=== PATIENT | male | born 1990 | race Caucasian/White ===

== ENCOUNTER 2019-03-15 13:40 | Outpatient (CLI) | payer BC ==
--- NOTE | 2019-03-15 14:31 | ULT ---
EXAM: Right lower extremity venous Doppler US HISTORY: Right lower extremity edema and pain FINDINGS: Grayscale, color-flow, Doppler evaluation, spectral analysis of the right lower extremity venous stru ctures is performed with 2-D imaging. The right common femoral, superficial femoral, popliteal, posterior tibial, proximal greater saphenous and profunda femoral veins are imaged. There is normal luminal compressibility, flow, and augmentation the visualized deep venous structures of the right lower extremity. IMPRESSION: No evidence of a deep vein thrombosis in the right lower extremity.
== END 2019-03-15 13:41 | disposition home or self-care (01) ==
LOC: ULT 13:40
PROVIDERS: ATTEND Family Medicine
DX: S76.301D Unspecified injury of muscle, fascia and tendon of the posterior muscle group at thigh level, right thigh, subsequent encounter (principal)

== ENCOUNTER 2019-05-20 12:50 | Outpatient (CLI) | payer BC ==
--- NOTE | 2019-05-20 13:24 | ULT ---
US Testicular W Doppler HISTORY: Testicular pain x3 days. COMPARISON: None. FINDINGS: Real-time imaging of the right and left testes were the right testicle measures 5.3 cm and the left also 5.3 cm in size. No testicular masses. A 2 to 3 mm tiny cyst is seen within the left testicle. Right and left epididymal regions are normal. Doppler evaluation with spectral analysis: Normal flow shown to the testes. IMPRESSION: Unremarkable testicular ultrasound.
== END 2019-05-20 12:51 | disposition home or self-care (01) ==
LOC: ULT 12:50
PROVIDERS: ATTEND Family Medicine
DX: N50.82 Scrotal pain (principal)
CPT/HCPCS: 76870; 93976